=== PATIENT | male | born 1960 | race Caucasian/White ===

== ENCOUNTER 2016-06-15 03:35 | Emergency (ER) | payer BC ==
--- NOTE | 2016-06-15 03:43 | PDOC ---
History of Present Illness - General History Source: Patient Exam Limitations: No Limitations - History of Present Illness Initial Comments: 06/15/16 04:20 The patient is a 56-year-old male with a significant past medical history of lymphoma, and presents to the emergency department with palpitations that started at 11:45 pm tonight. The patient reports that ever since he started chemo at [facility], his blood pressure spikes paroxysmally. He states that earlier today his BP was 180/80. The patient states that he was laying in bed when he began to feel his palpitations and his heart racing soon afterwards. He reports that his palpitations worsened with increasing anxiety. He took Ambien to help him sleep but his palpitations continued, prompting him to come to the ED. He reports this is the second time this has happened to him. The patient denies chest pain, shortness of breath, headache and dizziness. The patient denies fever, chills, nausea, vomit, diarrhea and constipation. The patient denies dysuria, frequency, urgency and hematuria. Allergies: NKDA Past surgical history: None reported Social History: No toxic habits reported PCP: Dr. Ervin Rueda <Verenice Estrada - Last Filed: 06/15/16 04:20> <Marcus Avalos - Last Filed: 06/15/16 06:24> - General Chief Complaint: Palpitations Stated Complaint: RAPID HEARTBEAT Past History <Verenice Estrada - Last Filed: 06/15/16 04:20> - Immunization History Immunization Up to Date: Yes - Psycho/Social/Smoking Cessation Hx Anxiety: No Suicidal Ideation: No Smoking History: Never smoked Have you smoked in the past 12 months: No Number of Cigarettes Smoked Daily: 0 Cigars Per Day: 0 Hx Alcohol Use: No Drug/Substance Use Hx: No <Marcus Avalos - Last Filed: 06/15/16 06:24> - Past Medical History Allergies/Adverse Reactions: Allergies Allergy/AdvReac Type Severity Reaction Status Date / Time No Known Allergies Allergy Verified 03/03/16 11:44 Home Medications: Ambulatory Orders Acyclovir [Zovirax -] 400 mg PO BID 06/15/16 Docusate Sodium [Colace -] 300 mg PO HS 06/15/16 Metoclopramide HCl [Reglan] 5 mg PO ASDIR 06/15/16 Metoprolol Succinate [Toprol Xl -] 25 mg PO DAILY 06/15/16 Ondansetron [Zofran *Odt*] 8 mg SL TID 06/15/16 Pantoprazole Sodium [Protonix -] 40 mg PO DAILY 06/15/16 Sennosides [Senokot] 2 tab PO HS 06/15/16 Sulfamethoxazole/Trimethoprim [Bactrim Ds -] 1 tab PO ASDIR 06/15/16 Zolpidem Tartrate [Ambien] 5 mg PO HS 06/15/16 Review of Systems - Review of Systems Able to Perform ROS?: Yes Comments:: 06/15/16 04:20 GENERAL/CONSTITUTIONAL: No fever or chills. No weakness. HEAD, EYES, EARS, NOSE AND THROAT: No change in vision. No ear pain or discharge. No sore throat. CARDIOVASCULAR: (+) Palpitations. No chest pain or shortness of breath. RESPIRATORY: No cough, wheezing, or hemoptysis. GASTROINTESTINAL: No nausea, vomiting, diarrhea or constipation. GENITOURINARY: No dysuria, frequency, or change in urination. MUSCULOSKELETAL: No joint or muscle swelling or pain. No neck or back pain. SKIN: No rash NEUROLOGIC: No headache, vertigo, loss of consciousness, or change in strength/ sensation. ENDOCRINE: No increased thirst. No abnormal weight change. HEMATOLOGIC/LYMPHATIC: No anemia, easy bleeding, or history of blood clots. ALLERGIC/IMMUNOLOGIC: No hives or skin allergy. <Estrada,Verenice - Last Filed: 06/15/16 04:20> *Physical Exam - Vital Signs Last Vital Signs Temp Pulse Resp BP Pulse Ox 98.3 F 110 H 23 143/69 100 06/15/16 03:36 06/15/16 03:36 06/15/16 03:36 06/15/16 03:36 06/15/16 03:36 - Physical Exam Comments: 06/15/16 04:21 GENERAL: Awake, alert, and fully oriented, in no acute distress HEAD: No signs of trauma EYES: PERRLA, EOMI, sclera anicteric, conjunctiva clear ENT: Auricles normal inspection, hearing grossly normal, nares patent, oropharynx clear without exudates. Moist mucosa NECK: Normal ROM, supple, no lymphadenopathy, JVD, or masses LUNGS: Breath sounds equal, clear to auscultation bilaterally. No wheezes, and no crackles HEART: (+) Rate in the low 100's. Regular rhythm, normal S1 and S2, no murmurs, rubs or gallops ABDOMEN: Soft, nontender, normoactive bowel sounds. No guarding, no rebound. No masses EXTREMITIES: Normal range of motion, no edema. No clubbing or cyanosis. No cords, erythema, or tenderness NEUROLOGICAL: Cranial nerves II through XII grossly intact. Normal speech, normal gait SKIN: Warm, Dry, normal turgor, no rashes or lesions noted. <Verenice Estrada - Last Filed: 06/15/16 04:20> Heart Score/ECG Review - ECG Impressions Comment:: 06/15/16 04:22 Sinus tachycardia RBBB Nonspecific T wave abnormality with change from 03/28/16 Abnormal ECG + LVH <Verenice Estrada - Last Filed: 06/15/16 04:20> ED Treatment Course - LABORATORY CBC & Chemistry Diagram: 06/15/16 04:00 06/15/16 04:00 <Verenice Estrada - Last Filed: 06/15/16 04:20> - LABORATORY CBC & Chemistry Diagram: 06/15/16 04:00 06/15/16 04:00 - RADIOLOGY Radiograph Interpretation: 06/15/16 06:20 CTA is negative for acute pathology. <Marcus Avalos - Last Filed: 06/15/16 06:24> Medical Decision Making - Medical Decision Making 06/15/16 04:07 This is a 56yo m with active lymphoma, currently on his last chemotherapy sessions who presents with a second episode of tachycardia/palpitations today and this is the second time this has happened within the last 6 months. He had no chest pain, SOB, hemoptysis and had a negative evaluation the last time this experience occurred. He has no active symptoms at this time and states he is here b/c his heart has been racing through the night. He has a negative evaluation and vitals show TWO SIRS criteria. Will evaluate for sepsis and neutropenia; will obtain CTA for concern of PE however, given his active malignancy, a d-dimer would be inappropriate and likely equivocal. His EKG shows slight change from the previous one on file; he has nonspecific T wave changes and this could represent strain. He is likely to be admitted for further surveillance given the ambiguity of the symptoms. 06/15/16 06:21 The patient has no current symptoms; his evaluation is grossly negative. CTA is negative for acute pathology. He will be discharged at this time with intruction to have close follow up with the PMD within the next 24 hours and return ig there is any change otherwise in symptoms. <Marcus Avalos - Last Filed: 06/15/16 06:24> *DC/Admit/Observation/Transfer - Attestations Scribe Attestion: 06/15/16 04:22 Documentation prepared by Verenice Estrada, acting as biomedical equipment tech for Marcus Avalos MD. <Verenice Estrada - Last Filed: 06/15/16 04:20> - Discharge Dispostion Admit: No Decision to Admit order Date/Time: 06/15/16 06:22 - Attestations Physician Attestion: 06/15/16 06:23 I, Dr. Marcus Avalos MD, attest that this document has been prepared under my direction and personally reviewed by me in its entirety. I further attest, that it accurately reflects all work, treatment, procedures and medical decision -making performed by me. <Marcus Avalos - Last Filed: 06/15/16 06:24> Diagnosis at time of Disposition: Palpitations - Discharge Dispostion Disposition: HOME Condition at time of disposition: Good - Referrals Referrals: Ervin Rueda MD [Primary Care Provider] - - Patient Instructions Additional Instructions: At this time, your evaluation is reassuring and there are no objective findings of concern. The vitals have been monitored and your heart rate has been normalized throughout most of the encounter as well. At this time, there is no specific explanation for the symptoms and you should follow up with your PMD within the next 24 hours and if there is any change otherwise in symptoms, please return immediately to the ED. Continue aggressive hydration, nutrition as tolerated.
[2016-06-15 04:02] VITALS: TEMP 98.3; BMI 29.0
[2016-06-15 04:21] LABS: MCH 32.3 pg (25.7-33.7); MCHC 33.7 g/dl (32.0-35.9); MEAN CELL VOLUME 95.9 fl (80-96); MEAN PLT VOLUME 6.9 fl (7.5-11.1); PLATELET COUNT 167 K/MM3 (134-434); RDW 20.3 % (11.9-15.9)
[2016-06-15 04:31] LABS: WHITE BLOOD COUNT 35.5 K/mm3 (4.0-10.0)
[2016-06-15 04:37] LABS: INR 1.1 (0.82-1.09); PROTHROMBIN TIME (PATIENT) 12.1 SEC (9.98-11.88)
[2016-06-15 04:47] LABS: ALBUMIN 3.6 g/dl (3.4-5.0); ANION GAP 9 (8-16); BILIRUBIN,TOTAL 0.6 mg/dL (0.2-1.0); CALCIUM 8.7 mg/dL (8.5-10.1); CO2 28 mmol/L (21-32); GLUCOSE,RANDOM 95 mg/dL (74-106); MAGNESIUM 2.1 mg/dL (1.8-2.4); PHOSPHOROUS 3.5 mg/dL (2.5-4.9); SGOT/AST 10 U/L (15-37); SGPT/ALT 18 U/L (12-78); TOT PROT 6.2 g/dl (6.4-8.2)
[2016-06-15 04:50] LABS: ALK PHOS 51 U/L (45-117); TROPONIN I < 0.02 ng/ml (0.00-0.05)
[2016-06-15 05:03] LABS: FREE T4 1.25 ng/dl (0.76-1.16); THYROID STIMULATING HORMONE 0.49 uIU/ml (0.358-3.74)
[2016-06-15 05:12] LABS: URINE APPEARANCE CLEAR; URINE BILIRUBIN NEGATIVE (NEGATIVE); URINE BLOOD NEGATIVE (NEGATIVE); URINE COLOR LTYELLOW; URINE GLUCOSE (UA) NEGATIVE (NEGATIVE); URINE KETONE NEGATIVE (NEGATIVE); URINE LEUK ESTERASE NEGATIVE (NEGATIVE); URINE NITRITE NEGATIVE (NEGATIVE); URINE PROTEIN NEGATIVE (NEGATIVE); URINE UROBILINOGEN NEGATIVE E.U./dl (0.2-1.0)
[2016-06-15 05:27] VITALS: PULSE 88
[2016-06-15 06:28] VITALS: BP 136/80
[2016-06-15 06:37] LABS: ANISOCYTOSIS 1+; PLATELET ESTIMATE ADEQUATE (NORMAL)
--- NOTE | 2016-06-15 11:12 | EKG ---
Test Reason : Blood Pressure : / mmHG Vent. Rate : 110 BPM Atrial Rate : 110 BPM P-R Int : 112 ms QRS Dur : 110 ms QT Int : 330 ms P-R-T Axes : 060 033 026 degrees QTc Int : 446 ms SINUS TACHYCARDIA RSR' OR QR PATTERN IN V1 SUGGESTS RIGHT VENTRICULAR CONDUCTION DELAY NONSPECIFIC T WAVE ABNORMALITY ABNORMAL ECG WHEN COMPARED WITH ECG OF 28-MAR-2016 02:53, RSR' PATTERN IN V1 IS NOW PRESENT NONSPECIFIC T WAVE ABNORMALITY NOW EVIDENT IN ANTEROLATERAL LEADS Confirmed by DARIA MAXWELL MD ([id number]) on 06/15/2016 11:12:03 AM Referred By: Confirmed By:DARIA MAXWELL MD
== END 2016-06-15 06:28 | disposition home or self-care (01) ==
LOC: JER 03:35
DX: R00.2 Palpitations (principal); C85.90 Non-Hodgkin lymphoma, unspecified, unspecified site
CPT/HCPCS: 36415; 71020-TC; 71275-TC; 80053; 81003; 82550; 83605; 83735; 83880; 84100; 84439; 84443; 84481; 84484; 85025; 85610; 86850; 86900; 86901; 93005; 93010; 99284-25

== ENCOUNTER 2023-03-27 13:57 | Emergency (ER) | payer OTHER, BC ==
[2023-03-27 14:14] VITALS: BP 152/82; PULSE 102; RESP 18; TEMP 98.8; BMI 28.6
== END 2023-03-27 15:35 | disposition home or self-care (01) ==
LOC: FER 13:57
DX: R00.2 Palpitations (principal)
CPT/HCPCS: 93005; 93010; 99283-25